=== PATIENT | male | born 1930 | race Caucasian/White ===

== ENCOUNTER → 2016-05-27 | Outpatient (CLI) | payer MEDICARE, BC ==
[~2016-05-27] MED LIST: ASPIRIN81 MG PO; BENADRYL25 MG PO; COREG12.5 MG PO; FLEXERIL10 MG PO; GLUCOPHAGE XR500 MG PO; GLUCOPHAGE500 MG PO; GLUCOTROL XL5 MG PO; LIPITOR40 MG PO; LOVASTATIN10 MG PO; MOBIC15 MG PO; PRILOSEC20 MG PO; PRINIVIL20 MG PO; VITAMIN B-12500 MCG PO; VITAMIN D31000 UNI1 PO; XANAX0.5 MG PO; ZYLOPRIM100 MG PO
== END | disposition short-term general hospital (02) ==
LOC: CLPAIN 10:56
PROC: 3E0233Z Introduction of Anti-inflammatory into Muscle, Percutaneous Approach (ICD-10-PCS; principal; 2016-05-27)
DX: M65.131 Other infective (teno)synovitis, right wrist (principal); G58.8 Other specified mononeuropathies; R07.82 Intercostal pain; M79.1 Myalgia
CPT/HCPCS: J3301

== ENCOUNTER → 2016-09-23 | Outpatient (CLI) | payer MEDICARE, BC | END | disposition short-term general hospital (02) | LOC: CLPAIN 08:31 | DX: M65.4 Radial styloid tenosynovitis [de Quervain] (principal); M13.811 Other specified arthritis, right shoulder | CPT/HCPCS: J1030 ==

== ENCOUNTER → 2016-09-23 | Outpatient (CLI) | payer MEDICARE, BC | END | disposition short-term general hospital (02) | LOC: CLCARD 08:34 | DX: I25.10 Atherosclerotic heart disease of native coronary artery without angina pectoris (principal); M79.89 Other specified soft tissue disorders; I73.9 Peripheral vascular disease, unspecified; R00.0 Tachycardia, unspecified; I10 Essential (primary) hypertension; E78.5 Hyperlipidemia, unspecified; E66.9 Obesity, unspecified; R93.6 Abnormal findings on diagnostic imaging of limbs; I44.0 Atrioventricular block, first degree; I45.2 Bifascicular block; R94.31 Abnormal electrocardiogram [ECG] [EKG]; Z95.1 Presence of aortocoronary bypass graft; Z85.51 Personal history of malignant neoplasm of bladder ==